=== PATIENT | female | born 1995 | race Caucasian/White ===

== ENCOUNTER 2017-02-08 11:53 | Inpatient (IN) | payer OTHER ==
[~2017-02-08 11:53] MED LIST: BACTRIM DS TAB1 EACH PO; CELEXA20 MG PO; CIPRO500 MG PO; COLACE100 MG PO; LEVAQUIN500 MG PO; MIRENA1 EACH IY; NAPROXEN500 MG PO; NEXPLANON68 MG SQ; NORCO 5-325 TA1 EACH PO; PROMETHAZINE HC25 M1 PO; TRAMADOL HCL50 MG PO; VICODIN 5-3001 EACH PO; ZOFRAN ODT4 MG PO; ZOFRAN ODT4 MG SL; ZOFRAN ODT8 MG PO; [UNRECOGNIZED DRUG - OTHER]
--- NOTE | 2017-02-08 14:08 | PR ---
[facility] [address] [facility] [place], [place] [address] Signed Progress Notes IP Datetime Report Generated by CPCatina: 02/08/2017 14:08 PROGRESS NOTES: [id number] Impression: Normal progression of labor Procedures: Artificial ROM; Intrauterine Pressure Catheter; Sterile Vag Exam Plan: Continue present management; Anesthesia consult Informed Consent Obtain: Vaginal Delivery; Risks, Benefits and Alternatives Discussed VITAL SIGNS: [id number] Vital Signs: Reviewed; Within Normal Limits EXAM: [id number] Dilatation: 5.0 Effacement: 80 Station: -2 Uterine Contractions: eery two to three minutes MEMBRANES: [id number] Membrane Status: Intact ROM Note: amniotomy performed - copious amount of fluid, light meconium Comments: patient wanting epidural Fetus A: [id number] FHR Baseline: 150's Variability: Moderate 6-25bpm Accelerations: 15X15 Decelerations: None FHR Category: Category I Presentation: Vertex Comments on Fetus A: reactive Fetus B: [id number] Signing Physician: Tg Leon MD CC: *Electronically Signed* 02/08/17 1408 TG LEON MD PATIENT NAME: JANET TAFOYA PROGRESS NOTE DATE OF : 93 PHYSICIAN: TG LEON MD RPT #: [id number] REPORT IS CONFIDENTIAL AND NOT TO BE RELEASED WITHOUT AUTHORIZATION
--- NOTE | 2017-02-08 19:43 | PR ---
[facility] [address] [facility] [place], [place] [address] Signed Progress Notes IP Datetime Report Generated by CPCatina: 02/08/2017 19:43 PROGRESS NOTES: [id number] Impression: Normal progression of labor Procedures: Artificial ROM; Intrauterine Pressure Catheter; Sterile Vag Exam Plan: Anticipate Vaginal Delivery Informed Consent Obtain: Vaginal Delivery; Risks, Benefits and Alternatives Discussed VITAL SIGNS: [id number] Vital Signs: Reviewed; Within Normal Limits EXAM: [id number] Dilatation: 10.0 Effacement: 100 Station: 1 Uterine Contractions: every one to two minutes MEMBRANES: [id number] Membrane Status: Ruptured Amniotic Fluid Color: Clear ROM Note: amniotomy performed - copious amount of fluid, light meconium Comments: patient ready to push, feeling urge Fetus A: [id number] FHR Baseline: 140's Variability: Moderate 6-25bpm Accelerations: 15X15 Decelerations: None FHR Category: Category I Presentation: Vertex Comments on Fetus A: reactive Fetus B: [id number] Signing Physician: Tg Leon MD CC: *Electronically Signed* 02/08/171942 TG LEON MD PATIENT NAME: JANET TAFOYA PROGRESS NOTE DATE OF : 93 PHYSICIAN: TG LEON MD RPT #: [id number] REPORT IS CONFIDENTIAL AND NOT TO BE RELEASED WITHOUT AUTHORIZATION
--- NOTE | 2017-02-12 21:46 | EKG ---
[facility] [address] [facility] [place] [address] Signed Sinus rhythm with frequent premature ventricular complexes in a pattern of bigeminy Otherwise normal ECG When compared with ECG of 14-AUG-2016 16:05, No significant change was found Confirmed by SNEHA TOLLIVER MD ([id number]) on 02/12/2017 9:45:55 PM Electronically Signed By: SNEHA TOLLIVER MD 02/12/17 2146 PATIENT NAME: JANET TAFOYA Electrocardiogram DATE OF : 93 PHYSICIAN: SNEHA TOLLIVER MD REPORT #: [id number] REPORT IS CONFIDENTIAL AND NOT TO BE RELEASED WITHOUT AUTHORIZATION
== END 2017-02-10 12:30 | disposition home or self-care (01) | DRG 775 ==
LOC: FBCO 11:53 → FBC 13:05
PROVIDERS: ADMIT Obstetrics & Gynecology
PROC: 10907ZC Drainage of Amniotic Fluid, Therapeutic from Products of Conception, Via Natural or Artificial Opening (ICD-10-PCS; principal; 2017-02-08)
PROC: 10E0XZZ Delivery of Products of Conception, External Approach (ICD-10-PCS; 2017-02-08)
PROC: 00HU33Z Insertion of Infusion Device into Spinal Canal, Percutaneous Approach (ICD-10-PCS; 2017-02-08)
PROC: 3E0R3CZ (ICD-10-PCS; 2017-02-08)
DX: O77.0 Labor and delivery complicated by meconium in amniotic fluid (principal); Z37.0 Single live birth; Z3A.38 38 weeks gestation of pregnancy; O69.81X0 Labor and delivery complicated by cord around neck, without compression, not applicable or unspecified
CPT/HCPCS: 01960; 36415; 59025; 80048; 83735; 84443; 85027; 93005; 93010; 99213; J2590; J3010; J7120

== ENCOUNTER 2017-06-21 11:51 | Emergency (ER) | payer OTHER ==
[~2017-06-21] VITALS: Ht 160 cm; Wt 74.8 kg
[2017-06-21] MEDS ORDERED: PERCOCET 5-3251 EACH PO (12:01)
[2017-06-21] MEDS ORDERED: METOPROLOL SUC100 MG PO (12:02)
--- NOTE | 2017-06-22 15:13 | EKG ---
[facility] [address] [place] [address] Signed Sinus rhythm with frequent premature ventricular complexes and premature atrial complexes Otherwise normal ECG When compared with ECG of 14-JUN-2017 11:28, premature atrial complexes are now present Confirmed by SNEHA TOLLIVER MD ([id number]) on 06/22/2017 3:13:33 PM Electronically Signed By: SNEHA TOLLIVER MD 06/22/17 1513 PATIENT NAME: JANET TAFOYA Electrocardiogram DATE OF : 93 PHYSICIAN: SNEHA TOLLIVER MD REPORT #: [id number] REPORT IS CONFIDENTIAL AND NOT TO BE RELEASED WITHOUT AUTHORIZATION
== END 2017-06-21 13:45 | disposition home or self-care (01) ==
LOC: ED 11:51
DX: I49.3 Ventricular premature depolarization (principal); R07.89 Other chest pain; F17.200 Nicotine dependence, unspecified, uncomplicated; Z98.51 Tubal ligation status; Z90.89 Acquired absence of other organs; Z98.890 Other specified postprocedural states; Z88.6 Allergy status to analgesic agent
CPT/HCPCS: 71045; 80053; 84484; 85025; 85379; 93005; 93010; 99284

== ENCOUNTER 2019-05-21 10:25 | Emergency (ER) | payer OTHER ==
[~2019-05-21] VITALS: Ht 160 cm; Wt 74.8 kg
--- OUTSIDE RECORDS SUMMARY | ~2019-05-21 | XMS | Clinical Summary ---
Demographics + + + | Address | [address] | | | [place] [address] | + + + | Home Phone | | + + + | Preferred Language | Unknown | + + + | Marital Status | Single | + + + | Cheondoism Affiliation | Unknown | + + + | Race | Unknown | + + + | Ethnic Group | Unknown | + + + Author + + + | Author | [facility] | | | and [place] | + + + | Organization | [facility] | | | and [place] | + + + | Address | Unknown | + + + | Phone | Unavailable | + + + Support + + + + + | Name | Relationship | Address | Phone | + + + + + | Jenny Michele | ECON | [place] | | | | | [address] | | + + + + + Care Team Providers + +------+ + | Care Automotive Heavy Mechanic Name | Role | Phone | + +------+ + | Lisseth Butt | PCP | | + +------+ + Allergies + + + + + + | Active Allergy | Reactions | Severity | Noted | Comments | | | | | Date | | + + + + + + | Aspirin | Hives | High | 11/07/19 | | | | | | 17 | | + + + + + + | Metoprolol | Other (See Comments) | Medium | 07/24/19 | Chest tightness | | | | | 18 | | + + + + + + Medications + + + +---------+------+------+-------+ | Medication | Sig | Dispensed | Refills | Star | End | Statu | | | | | | t | Date | s | | | | | | Date | | | + + + +---------+------+------+-------+ | | Take 1 tablet by | | 0 | /0 | | Activ | | [id number] | mouth daily. | | | 11/20 | | e | | PO | | | | 17 | | | + + + +---------+------+------+-------+ Active Problems + + + | Problem | Noted Date | + + + | PVC (premature ventricular contraction) | 11/21/2016 | + + + Family History + + +------+ + | Medical History | Relation | Name | Comments | + + +------+ + | Heart disease | Mother | | | + + +------+ + | Sleep apnea | Mother | | | + + +------+ + + +------+--------+ + | Relation | Name | Status | Comments | + +------+--------+ + | Father | | Alive | | + +------+--------+ + | Mother | | Alive | | + +------+--------+ + | Mother | | | | + +------+--------+ + Social History + +-------+ +--------+------+ | Tobacco Use | Types | Packs/Day | Years | Date | | | | | Used | | + +-------+ +--------+------+ | Former Smoker | | | | | + +-------+ +--------+------+ + + + | Sex Assigned at | Date Recorded | | | | + + + | Not on file | | + + + + + + + | Job Start Date | Occupation | Industry | + + + + | Not on file | Not on file | Not on file | + + + + + + + + | Travel History | Travel Start | Travel End | + + + + + + | No recent travel history available. | + + Last Filed Vital Signs + + + + + | Vital Sign | Reading | Time Taken | Comments | + + + + + | Blood Pressure | 116/60 | 07/02/2018 4:02 PM | | | | | PST | | + + + + + | Pulse | 79 | 07/02/2018 4:02 PM | | | | | PST | | + + + + + | Temperature | - | - | | + + + + + | Respiratory Rate | - | - | | + + + + + | Oxygen Saturation | - | - | | + + + + + | Inhaled Oxygen | - | - | | | Concentration | | | | + + + + + | Weight | 81.6 kg (180 lb) | 07/28/2018 12:34 PM | | | | | PST | | + + + + + | Height | 160 cm (5' 3") | 07/02/2018 4:02 PM | | | | | PST | | + + + + + | Body Mass Index | 31.89 | 07/02/2018 4:02 PM | | | | | PST | | + + + + + Plan of Treatment + + + + + | Health Maintenance | Due Date | Last Done | Comments | + + + + + | Vaccine: HPV (1 - | | | | | Female 3-dose | 8 | | | | series) | | | | + + + + + | Vaccine: | | | | | Dtap/Tdap/Td (1 - | 2 | | | | Tdap) | | | | + + + + + | Cervical Cancer | | | | | Screening (Pap) | 4 | | | + + + + + | Vaccine: Influenza | | | | | (#1) | 9 | | | + + + + + Results Not on filefrom Last 3 Months Insurance + +--------+ +--------+ +---------+--------+ | Payer | Benefi | Subscriber | Effect | Phone | Address | Type | | | t Plan | ID | warren | | | | | | / | | Dates | | | | | | Group | | | | | | + +--------+ +--------+ +---------+--------+ | [employer] | [employer] | [id number] | 06/03/19 | [phone] | | Medica | | MEDICAID HMO | HEALTH | | 13-Pre | 1 | | id | | | MD[place] | | [place] | | | | | [place] | | | | | | + +--------+ +--------+ +---------+--------+ | [employer] | [employer] | [id number] | 03/25/ | [phone] | | Medica | | MEDICAID HMO | HEALTH | | 2019-P | 1 | | id | | | MDCD | | resent | | | | | | [place] | | | | | | + +--------+ +--------+ +---------+--------+ + +--------+ +--------+ + + | Guarantor Name | Accoun | Relation to | Date | Phone | Billing Address | | | t Type | Patient | of | | | | | | | | | | + +--------+ +--------+ + + | Antonella Glynn | Person | Self | [birth year] | [address] | | | al/Fam | | 1994 | [phone] | [place], [place] | | | [place] | | | 6 (Home) | [address] | + +--------+ +--------+ + + | Antonella Glynn | Person | Self | [birth year] | [address] | | | al/Fam | | 1994 | [phone] | [place], [place] | | | [place] | | | 6 (Home) | [address] | | | | | | [phone] | | | | | | | 0 (Work) | | + +--------+ +--------+ + + Advance Directives + + + + + | Type | Date Recorded | Patient | Explanation | | | | Student Services Vice President | | + + + + + | Power of | | | | | Operations Plant Attendant | | | | + + + + + | Advance | | | | | Directive | | | | + + + + +
--- OUTSIDE RECORDS SUMMARY | ~2019-05-21 | XMS | Encounter Summary ---
Demographics + + + | Address | [address] | | | [place] [address] | + + + | Home Phone | | + + + | Preferred Language | Unknown | + + + | Marital Status | Single | + + + | Advent Affiliation | Unknown | + + + | Race | Unknown | + + + | Ethnic Group | Unknown | + + + Author + + + | Author | [facility] | | | and [place] | + + + | Organization | [facility] | | | and [place] | + + + | Address | Unknown | + + + | Phone | Unavailable | + + + Support + + + + + | Name | Relationship | Address | Phone | + + + + + | Jenny Michele | ECON | [place] | | | | | [address] | | + + + + + Care Team Providers + +------+ + | Care Master Merchandiser Name | Role | Phone | + +------+ + | Lisseth Butt | PCP | | + +------+ + Encounter Details +--------+ + + + + | Date | Type | Department | Care Team | Description | +--------+ + + + + | 11/06/ | Orders Only | [facility] | Conversion | | | 2017 | | CONVERSION [address] | Transaction, | | | [address] | Provider Unknown | | | | | [place], [place] | [phone] | | | | | [phone] | (Fax) | | | | | [phone] | | | +--------+ + + + + Social History + +-------+ +--------+------+ | Tobacco Use | Types | Packs/Day | Years | Date | | | | | Used | | + +-------+ +--------+------+ | Never Assessed | | | | | + +-------+ [...] recent travel history available. | + + documented as of this encounter Plan of Treatment Not on filedocumented as of this encounter Visit Diagnoses Not on filedocumented in this encounter"
--- OUTSIDE RECORDS SUMMARY | ~2019-05-21 | XMS | Encounter Summary ---
Demographics + + + | Address | [address] | | | [place] [address] | + + + | Home Phone | | + + + | Preferred Language | Unknown | + + + | Marital Status | Single | + + + | Hindu Affiliation | Unknown | + + + | Race | Unknown | + + + | Ethnic Group | Unknown | + + + Author + + + | Author | [facility] | | | and [place] | + + + | Organization | [facility] | | | and [place] | + + + | Address | Unknown | + + + | Phone | Unavailable | + + + Support + + + + + | Name | Relationship | Address | Phone | + + + + + | Jenny Michele | ECON | [place] | | | | | [address] | | + + + + + Care Team Providers + +------+ + | Care Marine Engine Machinist Name | Role | Phone | + +------+ + | Reese Ventura DO | PCP | | + +------+ + Encounter Details +--------+ + + + + | Date | Type | Department | Care Team | Description | +--------+ + + + + | 07/28/ | Hospital | [facility] | Conversion | Ventricular | | 2019 | Encounter | [facility] | Transaction, | premature beats | | | | [address] | Provider Unknown | | | | | [place] | [phone] | | | | | [address] | | | | | | [phone] | Ray Pressley | | | | | | MD [address] | | | | | | [place], [place] | | | | | | [place] | | | | | | [address] | | | | | | | | +--------+ + + + [...] + + documented as of this encounter Last Filed Vital Signs + + + + + | Vital Sign | Reading | Time Taken | Comments | + + + + + | Blood Pressure | - | - | | + + + + + | Pulse | - | - | | + [...] + + + + | Height | - | - | | + + + + + | Body Mass Index | 31.89 | 07/02/2018 4:02 PM | | | | | PST | | + + + + + documented in this encounter Medications at Time of Discharge + + + +---------+ + + | Medication | Sig | Dispensed | Refills | Start | End Date | | | | | | Date | | + + + +---------+ + + | | Take 1 tablet by | | 0 | 11/07/19 | | | [id number] | mouth daily. | | | 17 | | | PO | | | | | | + + + +---------+ + + documented as of this encounter Plan of Treatment Not on filedocumented as of this encounter Procedures + +--------+ + + + | Procedure Name | Priori | Date/Time | Associated Diagnosis | Comments | | | ty | | | | + +--------+ + + + | MRI CARDIAC W WO | Routin | 07/28/2018 | | Results for this | | CONTRAST | e | 1:38 PM | | procedure are in the | | | | PST | | results section. | + +--------+ + + + documented in this encounter Results MRI Cardiac w wo Contrast (07/28/2018 1:38 PM PST) + + | Specimen | + + | | + + + + + | Impressions | Performed At | + + + | *Suboptimal examination secondary to cardiac arrhythmia. *No focal | | | dyskinesis of the right ventricle to suggest ARVD by MRI. *No | | | definite MR evidence of infiltrative cardiomyopathy, however | | | evaluation limited secondary to limitations of the present | | | examination. Signed by: Shantelle Ibarra Date/Time: 07/28/2018 | | | 2:48 PM | | + + + + + + | Narrative | Performed At | + + + | MRI CARDIAC WITH AND WITHOUT CONTRAST CLINICAL INFORMATION: r/o | | | ARVD/infiltrative disease Ventricular premature beats COMPARISON: | | | None. PROCEDURE: Unenhanced multiplanar FIESTA and DIR. Phase | | | contrast flow measurements of aortic root, main pulmonary artery and | | | other valves and vessels as clinically indicated. Short axis and | | | limited long axis delayed enhancement images after the administration | | | of 8ML Gadavist. Limitations: Suboptimal examination secondary to | | | cardiac arrhythmia and limitations of cardiac gating. Irregular | | | cardiac rhythm. FINDINGS: Normal cardiac size. Trace pericardial | | | effusion. Irregular cardiac rhythm. No intracardiac filling | | | defects. No focal dyskinesis of the right ventricle or the left | | | ventricle. No myocardial hypertrophy. Normal myocardial perfusion | | | at rest. No abnormal delayed myocardial enhancement, however, | | | assessment limited by artifacts. | | + + + + + | Procedure Note | + + | HemalLes tamez Conversion - 01/13/2019 9:23 PM PDT MRI CARDIAC WITH AND WITHOUT CONTRAST | | CLINICAL INFORMATION: | | r/o ARVD/infiltrative disease Ventricular premature beats | | COMPARISON: | | None. | | PROCEDURE: | | Unenhanced multiplanar FIESTA and DIR. Phase contrast flow measurements | | of aortic root, main pulmonary artery and other valves and vessels as | | clinically indicated. Short axis and limited long axis delayed | | enhancement images after the administration of 8ML Gadavist. | | Limitations: Suboptimal examination secondary to cardiac arrhythmia and | | limitations of cardiac gating. Irregular cardiac rhythm. | | FINDINGS: | | Normal cardiac size. Trace pericardial effusion. Irregular cardiac | | rhythm. | | No intracardiac filling defects. | | No focal dyskinesis of the right ventricle or the left ventricle. No | | myocardial hypertrophy. | | Normal myocardial perfusion at rest. | | No abnormal delayed myocardial enhancement, however, assessment limited | | by artifacts. | | IMPRESSION: | | *Suboptimal examination secondary to cardiac arrhythmia. | | *No focal dyskinesis of the right ventricle to suggest ARVD by MRI. | | *No definite MR evidence of infiltrative cardiomyopathy, however | | evaluation limited secondary to limitations of the present examination. | | Signed by: Shantelle Ibarra | | Sign Date/Time: 07/28/2018 2:48 PM | + + documented in this encounter Visit Diagnoses + + | Diagnosis | + + | Ventricular premature beats Other premature beats | + + documented in this encounter"
--- OUTSIDE RECORDS SUMMARY | ~2019-05-21 | XMS | Encounter Summary ---
Demographics + + + | Address | [address] | | | [place] [address] | + + + | Home Phone | | + + + | Preferred Language | Unknown | + + + | Marital Status | Single | + + + | Restorationism Affiliation | Unknown | + + + | Race | Unknown | + + + | Ethnic Group | Unknown | + + + Author + + + | Author | [facility] | | | and [place] | + + + | Organization | [facility] | | | and [place] | + + + | Address | Unknown | + + + | Phone | Unavailable | + + + Support + + + + + | Name | Relationship | Address | Phone | + + + + + | Jenny Michele | ECON | [place] | | | | | [address] | | + + + + + Care Team Providers + +------+ + | Care Corrections Nurse Name | Role | Phone | + +------+ + | Reese Ventura DO | PCP | | + +------+ + Encounter Details +--------+ + + + + | Date | Type | Department | Care Team | Description | +--------+ + + + + | 07/28/ | Hospital | [facility] | Conversion | Ventricular | | 2019 | Encounter | [facility] | Transaction, | premature beats | | | | [address] | Provider Unknown | | | | | [place] | [phone] | | | | | [address] | | | | | | [phone] | Ray Pressley | | | | | | MD [address] | | | | | | [address], [place] | | | | | | [place] | | | | | | [address] | | | | | | | [...] | 0 | 11/07/19 | | | [id number] | mouth daily. | | | 17 [...]
--- OUTSIDE RECORDS SUMMARY | ~2019-05-21 | XMS | Encounter Summary ---
Demographics + + + | Address | [address] | | | [place] [address] | + + + | Home Phone | | + + + | Preferred Language | Unknown | + + + | Marital Status | Single | + + + | Protestant Affiliation | Unknown | + + + | Race | Unknown | + + + | Ethnic Group | Unknown | + + + Author + + + | Author | [facility] | | | and [place] | + + + | Organization | [facility] | | | and [place] | + + + | Address | Unknown | + + + | Phone | Unavailable | + + + Support + + + + + | Name | Relationship | Address | Phone | + + + + + | Jenny Michele | ECON | [place] | | | | | [address] | | + + + + + Care Team Providers + +------+ + | Care Grain I Farmworker Name | Role | Phone | + +------+ + | Lisseth Butt | PCP | | + +------+ + Encounter Details +--------+ + + + + | Date | Type | Department | Care Team | Description | +--------+ + + + + | 11/14/ | Orders Only | [facility] | Marino Aguirre, | | | 2017 | | CONVERSION 888 | MD [address] | | | | | [address] | [place], [place] | | | | | [place], [place] | [address] | | | | | [address] | | | | | | [phone] | | | +--------+ + + + [...] | + +--------+ + + + | ECHO INTERPRETATION | Routin | 11/14/2016 | | Results for this | | OF OUTSIDE FILMS | e | 3:09 PM | | procedure are in the | | | | PDT | | results section. | + +--------+ + + + documented in this encounter Results ECHO Interpretation of Outside Films (11/14/2016 3:09 PM PDT) + + | Specimen | + + | | + + + + + | Impressions | Performed At | + + + | 1. The left ventricle is normal in size, wall thickness and normal | | | systolic function EF 60-65%. 2. The right ventricle is mildly | | | enlarged with normal systolic function. 3. Mild tricuspid | | | regurgitation with no pulmonary hypertension. 4. There is no | | | pericardial effusion. | | + + + + + + | Narrative | Performed At | + + + | Patient Name: Antonella Glynn Date of : 1995 | | | Performing Physician: Marino Aguirre | | | | | | ------REPORT ADDENDED------ INDICATIONS pvcs | | | CONCLUSIONS 1. The left ventricle is normal in size, | | | wall thickness and normal systolic function EF 60-65%. 2. The right | | | ventricle is mildly enlarged with normal systolic function. 3. Mild | | | tricuspid regurgitation with no pulmonary hypertension. 4. There is | | | no pericardial effusion. FINDINGS -------- ECG rhythm: Sinus | | | rhythm. ECG rhythm: Frequent ventricular premature beats. Study: A | | | 2-dimensional transthoracic echocardiogram with m-mode, spectral and | | | color flow Doppler was perfomed. Study: This was a technically | | | adequate study. Left Ventricle: Overall left ventricular systolic | | | function is normal with, an EF between 60 - 65 %. Left Ventricle: The | | | left ventricle cavity size is normal. Left Ventricle: Left | | | ventricular wall thickness is normal. Left Ventricle: The diastolic | | | filling pattern is normal for the age of the patient. Right | | | Ventricle: The right ventricle is mildly enlarged. Right Ventricle: | | | The right ventricular systolic function is normal. Left Atrium: The | | | left atrium is normal in size. Right Atrium: The right atrium is | | | normal in size. Aortic Valve: The aortic valve is trileaflet, and | | | appears anatomically normal. No aortic stenosis or regurgitation. | | | Mitral Valve: The mitral valve is normal. Mitral Valve: There is | | | trace mitral regurgitation. Tricuspid Valve: The tricuspid valve | | | appears structurally normal. Tricuspid Valve: Mild tricuspid | | | regurgitation present. Tricuspid Valve: There is no evidence of | | | pulmonary hypertension. Tricuspid Valve: The right ventricular | | | systolic pressure (pulmonary artery systolic pressure), as measured by | | | Doppler, is 25.83mmHg. Pulmonic Valve: The pulmonic valve is normal. | | | Pulmonic Valve: Trace pulmonic regurgitation. Pericardium: There | | | is no pericardial effusion. Pericardium: No pleural effusion seen. | | | IVC/Hepatic Veins: The inferior vena cava is normal in size and | | | collapses > 50 % with sniff, indicating normal central venous | | | pressures. Aorta: The aortic root, ascending aorta are within normal | | | dimensions. MEASUREMENTS Ao asc: 2.95 cm Ao | | | sinus: 3.[address] junct: 2.78 cm LA Major: 3.43 cm | | | EDV(Teich): 104.09 ml IVSd: 1.01 cm LVIDd: 4.73 cm LVPWd: | | | 1.00 cm %FS: 26.89 % EF(Teich): 52.44 % ESV(Teich): | | | 49.50 ml LVIDs: 3.46 cm SV(Teich): 54.59 ml RVIDd: 3.10 cm | | | LVEF MOD A2C: 68.62 % SV MOD A2C: 91.36 ml LVEF MOD A4C: | | | 52.03 % SV MOD A4C: 59.07 ml EF Biplane: 61.08 % LVEDV MOD | | | BP: 123.49 ml LVESV MOD BP: 48.05 ml LVEDV MOD A2C: 133.14 | | | ml LVLd A2C: 8.36 cm LVEDV MOD A4C: 113.51 ml LVLd A4C: | | | 8.47 cm LVESV MOD A2C: 41.77 ml LVLs A2C: 6.94 cm LVESV MOD | | | A4C: 54.44 ml LVLs A4C: 7.10 cm LAESV(A-L): 65.71 ml LAESV | | | Index (A-L): 34.05 ml/m2 LAAs A2C: 17.60 cm2 LAESV A-L A2C: | | | 60.06 ml LALs A2C: 4.38 cm LAAs A4C: 19.26 cm2 LAESV A-L | | | A4C: 62.89 ml LALs A4C: 5.00 cm RAAs: 13.98 cm2 RAESV A-L: | | | 40.38 ml RAESV MOD: 37.54 ml RALs: 4.11 cm TAPSE: 2.24 | | | cm AV maxP.49 mmHg AV meanP.73 mmHg AV Vmax: 1.27 | | | m/s AV Vmean: 0.72 m/s AV VTI: 21.93 cm LVOT maxP.88 | | | mmHg LVOT meanP.22 mmHg LVOT Vmax: 0.98 m/s LVOT Vmean: | | | 0.70 m/s LVOT VTI: 20.45 cm MV A Cordell: 0.62 m/s MV DecT: | | | 125.14 ms MV E Cordell: 0.71 m/s MV E/A Ratio: 1.15 MV PHT: | | | 36.29 ms MVA By PHT: 6.06 cm2 Septal e': 0.06 m/s Septal | | | E/e': 10.56 Lateral e': 0.12 m/s Lateral E/e': 5.95 RAP: | | | 5 mmHg RVSP: 25.83 mmHg TR maxP.83 mmHg TR Vmax: | | | 2.28 m/s Frame Stripper: JERE Authenticated by: Marino Aguirre | | | Report Date/Time: 11-15-2016 20:19:40 | | + + + + -----+ | Procedure Note | + -----+ | Les Recio Conversion - 01/22/2019 8:16 PM PDT Patient Name: Pascual Glynn of | | : 1995 Performing Physician: Marino | | Carla ------REPORT | | ADDENDED------INDICATIONS pvcs CONCLUSIONS 1. The left ventricle is | | normal in size, wall thickness and normal systolic function EF 60-65%.2. The right | | ventricle is mildly enlarged with normal systolic function.3. Mild tricuspid | | regurgitation with no pulmonary hypertension.4. There is no pericardial effusion. | | FINDINGS--------ECG rhythm: Sinus rhythm.ECG rhythm: Frequent ventricular premature | | beats.Study: A 2-dimensional transthoracic echocardiogram with m-mode, spectral and | | color flow Doppler was perfomed.Study: This was a technically adequate study.Left | | Ventricle: Overall left ventricular systolic function is normal with, an EF between 60 - | | 65 %.Left Ventricle: The left ventricle cavity size is normal.Left Ventricle: Left | | ventricular wall thickness is normal.Left Ventricle: The diastolic filling pattern is | | normal for the age of the patient.Right Ventricle: The right ventricle is mildly | | enlarged.Right Ventricle: The right ventricular systolic function is normal.Left Atrium: | | The left atrium is normal in size.Right Atrium: The right atrium is normal in | | size.Aortic Valve: The aortic valve is trileaflet, and appears anatomically normal. No | | aortic stenosis or regurgitation.Mitral Valve: The mitral valve is normal.Mitral Valve: | | There is trace mitral regurgitation.Tricuspid Valve: The tricuspid valve appears | | structurally normal.Tricuspid Valve: Mild tricuspid regurgitation present.Tricuspid | | Valve: There is no evidence of pulmonary hypertension.Tricuspid Valve: The right | | ventricular systolic pressure (pulmonary artery systolic pressure), as measured by | | Doppler, is 25.83mmHg.Pulmonic Valve: The pulmonic valve is normal.Pulmonic Valve: Trace | | pulmonic regurgitation.Pericardium: There is no pericardial effusion.Pericardium: No | | pleural effusion seen.IVC/Hepatic Veins: The inferior vena cava is normal in size and | | collapses > 50 % with sniff, indicating normal central venous pressures.Aorta: The | | aortic root, ascending aorta are within normal dimensions. MEASUREMENTS Ao | | asc: 2.95 cmAo sinus: 3.[address] junct: 2.78 cmLA Major: 3.43 cmEDV(Teich): | | 104.09 mlIVSd: 1.01 cmLVIDd: 4.73 cmLVPWd: 1.00 cm%FS: 26.89 %EF(Teich): 52.44 | | %ESV(Teich): 49.50 mlLVIDs: 3.46 cmSV(Teich): 54.59 mlRVIDd: 3.10 cmLVEF MOD | | A2C: 68.62 %SV MOD A2C: 91.36 mlLVEF MOD A4C: 52.03 %SV MOD A4C: 59.07 mlEF | | Biplane: 61.08 %LVEDV MOD BP: 123.49 mlLVESV MOD BP: 48.05 mlLVEDV MOD A2C: | | 133.14 mlLVLd A2C: 8.36 cmLVEDV MOD A4C: 113.51 mlLVLd A4C: 8.47 cmLVESV MOD A2C: | | 41.77 mlLVLs A2C: 6.94 cmLVESV MOD A4C: 54.44 mlLVLs A4C: 7.10 cmLAESV(A-L): | | 65.71 mlLAESV Index (A-L): 34.05 ml/m2LAAs A2C: 17.60 [id number] A-L A2C: 60.06 | | mlLALs A2C: 4.38 cmLAAs A4C: 19.26 [id number] A-L A4C: 62.89 mlLALs A4C: 5.00 | | cmRAAs: 13.98 [id number] A-L: 40.38 mlRAESV MOD: 37.54 mlRALs: 4.11 cmTAPSE: | | 2.24 cmAV maxP.49 mmHgAV meanP.73 mmHgAV Vmax: 1.27 m/Becky Vmean: 0.72 | | m/Becky VTI: 21.93 cmLVOT maxP.88 mmHgLVOT meanP.22 mmHgLVOT Vmax: 0.98 | | m/sLVOT Vmean: 0.70 m/sLVOT VTI: 20.45 cmMV A Cordell: 0.62 m/sMV DecT: 125.14 msMV | | E Cordell: 0.71 m/sMV E/A Ratio: 1.15MV PHT: 36.29 msMVA By PHT: 6.06 [id number] e': | | 0.06 m/sSeptal E/e': 10.56Lateral e': 0.12 m/sLateral E/e': 5.95RAP: 5 | | mmHgRVSP: 25.83 mmHgTR maxP.83 mmHgTR Vmax: 2.28 m/s Frame Stripper: | | DBSAuthenticated by: Marino Fulton Date/Time: 11-15-2016 20:19:40 IMPRESSION: | | 1. The left ventricle is normal in size, wall thickness and normal systolic function EF | | 60-65%.2. The right ventricle is mildly enlarged with normal systolic function.3. Mild | | tricuspid regurgitation with no pulmonary hypertension.4. There is no pericardial | | effusion. | | | |MEASUREMENTS | | | |Ao asc: 2.95 cm | |Ao sinus: 3.31 cm | |Ao st junct: 2.78 cm | |LA Major: 3.43 cm | |EDV(Teich): 104.09 ml | |IVSd: 1.01 cm | |LVIDd: 4.73 cm | |LVPWd: 1.00 cm | |%FS: 26.89 % | |EF(Teich): 52.44 % | |ESV(Teich): 49.50 ml | |LVIDs: 3.46 cm | |SV(Teich): 54.59 ml | |RVIDd: 3.10 cm | |LVEF MOD A2C: 68.62 % | |SV MOD A2C: 91.36 ml | |LVEF MOD A4C: 52.03 % | |SV MOD A4C: 59.07 ml | |EF Biplane: 61.08 % | |LVEDV MOD BP: 123.49 ml | |LVESV MOD BP: 48.05 ml | |LVEDV MOD A2C: 133.14 ml | |LVLd A2C: 8.36 cm | |LVEDV MOD A4C: 113.51 ml | |LVLd A4C: 8.47 cm | |LVESV MOD A2C: 41.77 ml | |LVLs A2C: 6.94 cm | |LVESV MOD A4C: 54.44 ml | |LVLs A4C: 7.10 cm | |LAESV(A-L): 65.71 ml | |LAESV Index (A-L): 34.05 ml/m2 | |LAAs A2C: 17.60 cm2 | |LAESV A-L A2C: 60.06 ml | |LALs A2C: 4.38 cm | |LAAs A4C: 19.26 cm2 | |LAESV A-L A4C: 62.89 ml | |LALs A4C: 5.00 cm | |RAAs: 13.98 cm2 | |RAESV A-L: 40.38 ml | |RAESV MOD: 37.54 ml | |RALs: 4.11 cm | |TAPSE: 2.24 cm | |AV maxP.49 mmHg | |AV meanP.73 mmHg | |AV Vmax: 1.27 m/s | |AV Vmean: 0.72 m/s | |AV VTI: 21.93 cm | |LVOT maxP.88 mmHg | |LVOT meanP.22 mmHg | |LVOT Vmax: 0.98 m/s | |LVOT Vmean: 0.70 m/s | |LVOT VTI: 20.45 cm | |MV A Cordell: 0.62 m/s | |MV DecT: 125.14 ms | |MV E Cordell: 0.71 m/s | |MV E/A Ratio: 1.15 | |MV PHT: 36.29 ms | |MVA By PHT: 6.06 cm2 | |Septal e': 0.06 m/s | |Septal E/e': 10.56 | |Lateral e': 0.12 m/s | |Lateral E/e': 5.95 | |RAP: 5 mmHg | |RVSP: 25.83 mmHg | |TR maxP.83 mmHg | |TR Vmax: 2.28 m/s | | | |Frame Stripper: JERE | |Authenticated by: Marino Aguirre | |Report Date/Time: 11-15-2016 20:19:40 | | | |IMPRESSION: | |1. The left ventricle is normal in size, wall thickness and normal systolic function EF 60- 65%. | |2. The right ventricle is mildly enlarged with normal systolic function. | |3. Mild tricuspid regurgitation with no pulmonary hypertension. | |4. There is no pericardial effusion. | + -----+ documented in this encounter Visit Diagnoses Not on filedocumented in this encounter"
--- OUTSIDE RECORDS SUMMARY | ~2019-05-21 | XMS | Encounter Summary ---
Demographics + + + | Address | [address] | | | [place] [address] | + + + | Home Phone | | + + + | Preferred Language | Unknown | + + + | Marital Status | Single | + + + | Amish Affiliation | Unknown | + + + | Race | Unknown | + + + | Ethnic Group | Unknown | + + + Author + + + | Author | [facility] | | | and [place] | + + + | Organization | [facility] | | | and [place] | + + + | Address | Unknown | + + + | Phone | Unavailable | + + + Support + + + + + | Name | Relationship | Address | Phone | + + + + + | Jenny Michele | ECON | [place] | | | | | [address] | | + + + + + Care Team Providers + +------+ + | Care Bag Filler Name | Role | Phone | + [...] Provider Unknown | | | | | [place], [place] | [phone] | | | | | [phone] | (Fax) | | | | | [phone] | | | +--------+ + + + [...]
--- OUTSIDE RECORDS SUMMARY | ~2019-05-21 | XMS | Encounter Summary ---
Demographics + + + | Address | [address] | | | [place] [address] | + + + | Home Phone | | + + + | Preferred Language | Unknown | + + + | Marital Status | Single | + + + | Adventism Affiliation | Unknown | + + + | Race | Unknown | + + + | Ethnic Group | Unknown | + + + Author + + + | Author | [facility] | | | and [place] | + + + | Organization | [facility] | | | and [place] | + + + | Address | Unknown | + + + | Phone | Unavailable | + + + Support + + + + + | Name | Relationship | Address | Phone | + + + + + | Jenny Michele | ECON | [place] | | | | | [address] | | + + + + + Care Team Providers + +------+ + | Care Disability Services Coordinator Name | Role | Phone | + [...] | | [address] | [place], [place] | | | | | [place], [place] | [address] | | | | | [address] | | | | | | [phone] | | | +--------+ + + + [...] TR Vmax: | | | 2.28 m/s Pipe Fitter Maintenance: JERE Authenticated by: Marino Aguirre | | [...] mlLAESV Index (A-L): 34.05 ml/m2LAAs A2C: 17.60 [id number] A-L A2C: 60.06 | | mlLALs A2C: 4.38 cmLAAs A4C: 19.26 [id number] A-L A4C: 62.89 mlLALs A4C: 5.00 | | cmRAAs: 13.98 [id number] A-L: 40.38 mlRAESV MOD: 37.54 mlRALs: 4.11 [...] 1.15MV PHT: 36.29 msMVA By PHT: 6.06 qi3Loskti e': | | 0.06 m/sSeptal E/e': 10.56Lateral e': 0.12 m/sLateral E/e': 5.95RAP: 5 | | mmHgRVSP: 25.83 mmHgTR maxP.83 mmHgTR Vmax: 2.28 m/s Pipe Fitter Maintenance: | | DBSAuthenticated by: Marino Fulton Date/Time: [...] |TR Vmax: 2.28 m/s | | | |Pipe Fitter Maintenance: JERE | |Authenticated by: Marino Aguirre | [...]
--- OUTSIDE RECORDS SUMMARY | ~2019-05-21 | XMS | Clinical Summary ---
Demographics + + + | Address | [address] | | | [place] [address] | + + + | Home Phone | | + + + | Preferred Language | Unknown | + + + | Marital Status | | + + + | Restoration Affiliation | Unknown | + + + | Race | Unknown | + + + | Ethnic Group | Unknown | + + + Author + + + | Author | [facility] (Historical as of | | | 01-17-19) | + + + | Organization | [facility] [employer] (Historical as of | | | 01-17-19) | + + + | Address | Unknown | + + + | Phone | Unavailable | + + + Support + + +---------+ + | Name | Relationship | Address | Phone | + + +---------+ + | Jenny Michele | ECON | Unknown | | + + +---------+ + Care Team Providers + +------+ + | Care Fishing Vessel Operator Name | Role | Phone | + +------+ + | Lisseth Butt PA-C | PP | | + +------+ + Allergies + [...] | + + + + + + Current Medications + + +-------+---------+------+------+-------+ | Prescription | Sig. | Disp. | Refills | Star | End | Statu | | | | | | t | Date | s | | | | | | Date | | | + + +-------+---------+------+------+-------+ | | Take 1 tablet by | | | | | Activ | | Vukobqru-Itc-Jl-FA | mouth daily. | | | | | e | | (PRE- PO) | | | | | | | + + +-------+---------+------+------+-------+ Active Problems + + + | Problem [...] | Alive | | + +------+--------+ + Social History + +-------+ +--------+------+ | Tobacco Use | Types | Packs/Day | Years | Date | | | | | Used | | + +-------+ +--------+------+ | Former Smoker | | | | | + +-------+ +--------+------+ + +---+---+---+ | Smokeless Tobacco: | | | | | Never Used | | | | + +---+---+---+ + + +---------+ + | Alcohol Use | Drinks/We | oz/Week | Comments | | | ek | | | + + +---------+ + | Yes | | | rare past use | + + +---------+ + + + + | Sex Assigned at | Date Recorded | | | | + + + | Not on file | | + + + Last Filed Vital Signs + + + + | Vital Sign | Reading | Time Taken | + + + + | Blood Pressure | 116/60 | 07/02/2018 3:59 PM PST | + + + + | Pulse | 79 | 07/02/2018 3:59 PM PST | + + + + | Temperature | - | - | + + + + | Respiratory Rate | - | - | + + + + | Oxygen Saturation | 99% | 07/02/2018 3:59 PM PST | + + + + | Inhaled Oxygen | - | - | | Concentration | | | + + + + | Weight | 81.6 kg (180 lb) | 07/28/2018 12:34 PM PST | + + + + | Height | 160 cm (5' 3") | 07/02/2018 3:59 PM PST | + + + + | Body Mass Index | 31.89 | 07/28/2018 12:34 PM PST | + + + + Plan of Treatment [...] filefrom Last 3 Months Insurance + +--------+ +------+-------+ + | Payer | Benefi | Subscriber | Type | Phone | Address | | | t Plan | ID | | | | | | / | | | | | | | Group | | | | | + +--------+ +------+-------+ + | MEDICAID | [employer] | [id number] | | | [address] | | | [place] | | | | [place] | | | [place] | | | | [address] | | | 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
--- OUTSIDE RECORDS SUMMARY | ~2019-05-21 | XMS | Clinical Summary ---
Demographics + + + | Address | [address] | | | [place] [address] | + + + | Home Phone | | + + + | Preferred Language | Unknown | + + + | Marital Status | Single | + + + | Jewish Affiliation | Unknown | + + + | Race | Unknown | + + + | Ethnic Group | Unknown | + + + Author + + + | Author | [facility] | | | and [place] | + + + | Organization | [facility] | | | and [place] | + + + | Address | Unknown | + + + | Phone | Unavailable | + + + Support + + + + + | Name | Relationship | Address | Phone | + + + + + | Jenny Michele | ECON | [place] | | | | | [address] | | + + + + + Care Team Providers + +------+ + | Care Hydrology Teacher Name | Role | Phone | + [...] | /0 | | Activ | | [id number] | mouth daily. | | | 11/20 [...] | [employer] | [employer] | [id number] | 06/03/19 | [phone] | | Medica | | MEDICAID HMO | HEALTH | | 13-Pre | 1 | | id | | | MDCD | | sent | | | | | | [place] | | | | | | + +--------+ +--------+ +---------+--------+ | [employer] | [employer] | [id number] | 03/25/ | [phone] | | Medica | | MEDICAID HMO [...] Person | Self | [birth year] | | [address] | | | al/Fam | | 1994 | [phone] | [place], [place] | | | [place] | | | [address] (Home) | [address] | + +--------+ +--------+ + + | Antonella Glynn | Person | Self | [birth year] | | [address] | | | al/Fam | | 1994 | [phone] | [place], [place] | | | [place] | | | 6 (Home) | [address] | | | | | [phone] | | | | | | | 0 (Work) | | + +--------+ +--------+ + + Advance Directives + + + + + | Type | Date Recorded | Patient | Explanation | | | | 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
--- OUTSIDE RECORDS SUMMARY | ~2019-05-21 | XMS | Clinical Summary ---
Demographics + + + | Address | [address] | | | [place] [address] | + + + | Home Phone | | + + + | Preferred Language | Unknown | + + + | Marital Status | | + + + | Gnosticism Affiliation | Unknown | + + + | Race | Unknown | + + + | Ethnic Group | Unknown | + + + Author + + + | Author | [facility] [employer] (Historical as of | | | 01-17-19) | + + + | Organization | [facility] [employer] (Historical as of | | | 01-17-19) [...] Team Providers + +------+ + | Care Job Spotter Name | Role | Phone | + [...] | | | | Activ | | Dbjyinfc-Kwv-Fx-FA | mouth daily. 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
[~2019-05-21 10:25] MED LIST changes: +METOPROLOL SUC100 MG PO; +PERCOCET 5-3251 EACH PO
== END 2019-05-21 15:24 | disposition home or self-care (01) ==
LOC: ED 10:25
DX: K92.1 Melena (principal); R10.11 Right upper quadrant pain; J45.909 Unspecified asthma, uncomplicated; Z87.891 Personal history of nicotine dependence
CPT/HCPCS: 76705; 80053; 81001; 83690; 85025; 96361; 99284-25; J1885; J2405; J7030

== ENCOUNTER 2021-04-26 07:52 | Day surgery (SDC) | payer OTHER ==
[~2021-04-26] VITALS: Ht 160 cm; Wt 69.5 kg
[~2021-04-26 07:52] MED LIST changes: +SUBOXONE 8 MG-1 EAC1 SL; +VENTOLIN HFA18 GM INH
--- NOTE | 2021-04-26 11:13 | NUR ---
04/26/21 1113 Medina Varela 1050 PT ARRIVED TO PACU ON 6L VIA MASK, PT ASLEEP AND VSS. 1058 PT WAKES TO TACTILE STIMULI, PT START CRYING AND REPORTS PAIN 01/10. PT REORIENTED TO PACU. 1103 PAIN MEDICATION GIVEN PER EMAR. 1110 PT REPROTS DECREASED PAIN, 10/10. PLAN OF CARE DISCUSSED.
--- NOTE | 2021-04-26 11:54 | NUR ---
[id number]: PT ARRIVES BACK TO DS RM 5 FROM PACU AWAKE AND ALERT. PT STATES "IT IS HARD TO BREATH BECAUSE IT HURTS SO BAD." PT BEGINS TO CRY IN PAIN AND STATES, "MY CHEST FEELS HEAVY." PT MEDICATED WITH IV PAIN MEDS; SEE EMAR. PT SPOUSE AT BEDSIDE ON ARRIVAL. 1150: PT NO LONGER WINCING/CRYING WITH PAIN. EVEN STEADY RESPIRATIONS, PT STATES THAT SHE FEELS "A LITTLE BETTER" AND IS EDUCATED ABOUT PAIN AND WHAT TO EXPECT. PT TAKES SMALL SIPS OF WATER, DENIES ANY NAUSEA. PT HAS ICE TO ABD WITH PILLOW TO BRACE. DC CRITERIA EXPLAINED AND CALL LIGHT WITHIN REACH.
--- NOTE | 2021-04-26 12:35 | NUR ---
1220: PT USES CALL LIGHT TO ALERT DS STAFF OF URGE TO VOID. PT UP TO BATHROOM WITH RN AND SPOUSE ASSIST, STEADY GAIT BUT PAINFUL. PT ABLE TO VOID QS WITH NO PROBLEMS. BACK TO DS RM 5 AND VERY PAINFUL LIFTING LEGS INTO BED, RN ASSIST. PT TEARFUL AND IV PAIN MEDICATION GIVEN; SEE EMAR. CALL LIGHT WITHIN REACH. PT ENCOURAGED TO EAT A FEW BITES OF APPLESAUCE IN ANTICIPATION OF PO PAIN MEDS. PT AGREEABLE.
--- NOTE | 2021-04-26 12:41 | OR ---
[facility] [address], [place] [address] Signed DATE OF OPERATION: 04/26/2021 SURGEON: Jayesh Saez MD PREOPERATIVE DIAGNOSIS: Chronic cholecystitis. POSTOPERATIVE DIAGNOSES: 1. Chronic cholecystitis. 2. Cholesterolosis. PROCEDURE: Laparoscopic cholecystectomy with intraoperative cholangiogram. ESTIMATED BLOOD LOSS: None. FINDINGS: Antonella's intraoperative cholangiogram was unremarkable. She had significant cholesterolosis. She had adhesions of the omentum to the gallbladder. INDICATIONS: Antonella is a 26-year-old female who has had trouble with epigastric abdominal pain and constant nausea over the last few months. The ultrasound was unremarkable. She underwent a HIDA scan and her gallbladder ejection fraction was good at 49%. However injection of the CCK reproduced her symptoms. As a result, she was asked to see me with respect to the above. In the office, I gave her a pamphlet on the gallbladder. We have discussed the location and function of the gallbladder. We have discussed laparoscopic versus open cholecystectomy. She understands expected intraop and postop course. 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 Consequently, she did go back and see her assistant district attorney and she was cleared for surgery with acceptable risk. She will be continuing her cardiac evaluation as the year goes on. She understands there is risk to surgery including, but not limited to bleeding, infection, scarring, change in contour of the skin, damage to bowel, damage to main bile duct, incisional hernias and other unforeseen comorbidities. She had expressed understanding and wished to proceed. PROCEDURE NOTE: I met with Antonella and her in our preop area. After answering their questions, Antonella was taken in the operating room and placed in the supine position under general Electronically Signed By: JAYESH SAEZ MD 04/26/21 1241 PATIENT NAME: ANTONELLA TAFOYA OPERATIVE REPORT DATE OF : [birth year] REPORT #: [id number] PHYSICIAN: JAYESH SAEZ MD PCP: MICHAELA RAMIREZ PA-C REPORT IS CONFIDENTIAL AND NOT TO BE RELEASED WITHOUT AUTHORIZATION [facility] [address], [place] [address] Signed endotracheal tube anesthesia. She was given preoperative antibiotics along with subcutaneous heparin. SCDs were utilized. All trocars were placed in usual positions under direct visualization of camera without difficulty. The gallbladder was grasped and elevated in the right upper quadrant. We took pictures throughout for photodocumentation. We had to take down adhesions of the omentum from the gallbladder. The triangle of Calot was dissected free and the intraoperative cholangiocatheter was inserted into the cystic duct. The intraoperative cholangiogram was performed and found to be unremarkable. The cystic duct stump was secured with a PDS Endoloop along with two clips to natalia its location. The clip had been placed across the cystic artery and it was divided. The gallbladder was then removed from the gallbladder fossa with the help of the cautery and placed into an EndoCatch bag. We used our laparoscopic suturing device to pass 0-Vicryl suture on either side of the fascia of the subxiphoid trocar site. This was tied down to close this fascia primarily. After this, all the gas was allowed to escape and all the trocars were removed along with the gallbladder. The gallbladder was opened on the back table by our circulating nurse for photodocumentation. It demonstrated significant cholesterolosis. We closed the fascia of the supraumbilical trocar site with interrupted simple and [id number] 0-Vicryl sutures. Local anesthetic was injected into all trocar sites. Each trocar site was irrigated and suctioned out until clear. The skin and dermis of each trocar site were closed with interrupted 3-0 subcuticular Monocryl sutures. Dry gauze and tape were applied to all incisions. Antonella was awakened from her anesthesia, extubated in the OR, and taken to the recovery room in stable condition. Jayesh Saez MD [facility] /[id number] cc: ANDREW Emerson MD Copies: MICHAELA RAMIREZ PA-C Electronically Signed By: JAYESH SAEZ MD 04/26/21 1241 PATIENT NAME: ANTONELLA TAFOYA OPERATIVE REPORT DATE OF : [birth year] REPORT #: [id number] PHYSICIAN: JAYESH SAEZ MD PCP: MICHAELA RAMIREZ PA-C REPORT IS CONFIDENTIAL AND NOT TO BE RELEASED WITHOUT AUTHORIZATION [address] [address] Signed JAYESH SAEZ MD ~ Electronically Signed By: JAYESH SAEZ MD 04/26/21 1241 PATIENT NAME: ANTONELLA ATFOYA OPERATIVE REPORT DATE OF : [birth year] REPORT #: [id number] PHYSICIAN: JAYESH SAEZ MD PCP: MICHAELA RAMIREZ PA-C REPORT IS CONFIDENTIAL AND NOT TO BE RELEASED WITHOUT AUTHORIZATION
--- NOTE | 2021-04-26 12:45 | NUR ---
[id number]: PT PREFERRED [facility] CALLED TO SEE IF THEY CAN FILL PAIN PRESCRIPTION. PHARMACIST STATES THEY ARE "ALL OUT OF NORCO 10/325 MG AND 7.5/325 MG AND ONLY HAVE 35 TABS OF 5/[address] [facility] STATES THEY WOULD "NEED A NEW ORDER TO SUPPLEMENT WITH NORCO 5/325 MG BUT THAT THEY ARE FIRST COME, FIRST SERVED." DR. SAEZ CURRENTLY UNABLE TO WRITE NEW SCRIPT HE IS SCRUBBED INTO A CASE. THIS RN ALSO CALLS [facility] WHO DOES NOT ANSWER [facility]. [facility] STATES "WE DO HAVE NORCO 10/325 MG ON HAND, BUT WILL NOT BE ABLE TO FILL FOR A DAY OR TWO DUE TO [facility] CLOSING AND INFLUX OF PATIENTS." THIS RN CALLS [facility] AND SPEAKS TO ALLIE WHO STATES THEY ARE WILLING AND ABLE TO FILL PT PRESCRIPTION WITH THANKSGIVING TOMORROW AND OUTPATIENT PHARMACY DELAYS. ALL INFORMATION RELAYED TO PT AND SPOUSE, WHO ARE RELIEVED TO HAVE MEDS FILLED TODAY.
[2021-04-26] MEDS ORDERED: HYDROCODON-ACE1 EAC8 PO (14:08)
--- NOTE | 2021-04-26 14:12 | NUR ---
[id number]: PHARMACIST ALLIE IN TO PT ROOM WITH FILLED NORCO 10/325 MG PRESCRIPTION, PROVIDED EDUCATION.
--- NOTE | 2021-04-26 14:15 | NUR ---
[id number]: LUIS POOLE CRNA CONTACTED ABOUT PT HAVING "PANIC ATTACK" AND GIVES VERBAL ORDERS TO GIVE PT UP TO 2MG VERSED- "GIVE 1 MG AND WAIT 10 MINUTES BEFORE GIVING SECOND DOSE OF 1 MG." PHARMACY NOTIFIED OF NEW ORDERS INPUT INTO [employer].
--- NOTE | 2021-04-26 16:30 | NUR ---
[id number]: PT CONFIRMS THAT VERSED HELPED STATES, "I DON'T FEEL BAD NOW." SPOUSE CONT AT SIDE OF BED. [id number]: IN TO PT ROOM TO ASSESS AND PT STATES, "I JUST FEEL SO UNCOMFORTABLE, NOTHING I DO SEEMS TO HELP... I JUST WANT TO GO HOME." PT OFFERED SECOND DOSE OF VERSED AND DECLINES. PT WOULD LIKE TO GO HOME STRETCHER IS NOT COMFORTABLE. PT DRESSES SELF WITH SPOUSE IN ROOM, ENCOURAGED TO OPEN CURTAIN WHEN FINISHED. [id number]: DC INSTRUCTIONS PRESENTED BOTH VERBALLY AND WRITTEN TO PT AND SPOUSE. PT DC FROM DS RM 5 VIA WC TO SPOUSE IN PERSONAL VEHICLE WAITING AT MAIN HOSPTIAL ENTRACE TO HOME.
== END 2021-04-26 14:35 | disposition home or self-care (01) ==
LOC: DS 07:52
PROVIDERS: ATTEND Colon & Rectal Surgery
PROC: BF13YZZ Fluoroscopy of Gallbladder and Bile Ducts using Other Contrast (ICD-10-PCS; 2021-04-26)
PROC: 0FT44ZZ Resection of Gallbladder, Percutaneous Endoscopic Approach (ICD-10-PCS; principal; 2021-04-26 08:00)
DX: K81.1 Chronic cholecystitis (principal); J45.909 Unspecified asthma, uncomplicated; K21.9 Gastro-esophageal reflux disease without esophagitis; Z87.891 Personal history of nicotine dependence
CPT/HCPCS: 00790; 74300; J0330; J0690; J1100; J1170; J1644; J1885; J2001; J2250; J2300; J2405; J2704; J3010; J7121; Q9967

== ENCOUNTER 2021-05-05 08:49 | Emergency (ER) | payer OTHER ==
[~2021-05-05] VITALS: Ht 160 cm; Wt 70.8 kg
[~2021-05-05 08:49] MED LIST changes: +HYDROCODON-ACE1 EAC8 PO
--- OUTSIDE RECORDS SUMMARY | 2021-05-05 08:56 | XMS ---
PreManage Notification: JANET TAFOYA Security Patrol Man Events No recent Security Events currently on file CRITERIA MET - [place] [facility] - 2 Visits in 30 Days CARE PROVIDERS There are no care providers on record at this time. Milagros has no Care Guidelines for this patient. [facility] MO[facility] NOTE: Visits indicate total known visits. ED/[facility] VISIT TRACKING (12 MO.) [facility] COMPLAINT: - POST OP PROBLEM 05/04/2021 19:06 [facility] [place] TYPE: Emergency COMPLAINT: - POST OP PROBLEM, LWOB INPATIENT VISIT TRACKING (12 MO.) No inpatient visits to display in this time frame [email or web address]
== END 2021-05-05 10:42 | disposition home or self-care (01) ==
LOC: ED 08:49
DX: K91.89 Other postprocedural complications and disorders of digestive system (principal); J45.909 Unspecified asthma, uncomplicated; Z87.891 Personal history of nicotine dependence; Z88.6 Allergy status to analgesic agent; Z91.012 Allergy to eggs; Z79.899 Other long term (current) drug therapy
CPT/HCPCS: 85025; 99283

== ENCOUNTER 2022-10-27 11:03 | Emergency (ER) | payer OTHER ==
[~2022-10-27] VITALS: Ht 160 cm; Wt 86.8 kg
[~2022-10-27 11:03] MED LIST changes: +MOTRIN IB200 MG PO
--- OUTSIDE RECORDS SUMMARY | 2022-10-27 11:06 | XMS ---
PreManage Notification: JANET TAFOYA Security Personnel Officer Events 1 event(s) in the past 18 months Most recent security events: Elopement at [facility] 05/04/2021 19:06 - Other Details: PATIENT LWBS CRITERIA MET - [facility] CARE PROVIDERS -, Amanda- Dentist: Service Order Dispatcher [facility] PHONE: [phone] MICHAELA RAMIREZ Physician Windows Laptop Technician 05/08/2021-Current PHONE: [phone] Milagros has no Care Guidelines for this patient. Yamini VISIT COUNT (12 MO.) [address] [place] [address] TOTAL 2 NOTE: Visits indicate total known visits. ED/UCC VISIT TRACKING (12 MO.) 10/27/2022 11:04 [facility] [place] TYPE: Emergency COMPLAINT: - BLOODY STOOL, ABD PAIN 12/05/2021 14:55 [facility] TYPE: Emergency COMPLAINT: - R LOWER ABD PAIN, DIZZY, SHAKY INPATIENT VISIT TRACKING (12 MO.) 12/05/2021 14:56 [facility] [place] TYPE: Observation COMPLAINT: - ECTOPIC DIAGNOSES: - Allergy status to analgesic agent - Allergy to eggs - Contact with and (suspected) exposure to COVID-19 - Endometriosis, unspecified - Personal history of nicotine dependence - Right tubal without intrauterine - Unspecified asthma, uncomplicated - Unspecified ectopic without intrauterine - Ventricular premature depolarization [email or web address]
[2022-10-27] MEDS ORDERED: TRAZODONE HCL50 MG PO (11:52)
[2022-10-27] MEDS ORDERED: BUPRENORPHINE-1 EACH SL (11:52)
[2022-10-27] MEDS ORDERED: ANUSOL-HC25 MG PR (12:37)
[2022-10-27 14:20] VITALS: BP 117/81
== END 2022-10-27 14:21 | disposition home or self-care (01) ==
LOC: ED 11:03
DX: K62.5 Hemorrhage of anus and rectum (principal); J45.909 Unspecified asthma, uncomplicated; Z87.891 Personal history of nicotine dependence; Z88.8 Allergy status to other drugs, medicaments and biological substances; Z91.012 Allergy to eggs; Z79.899 Other long term (current) drug therapy
CPT/HCPCS: 36415; 80053; 85025; 99284

== ENCOUNTER 2023-10-05 23:48 | Emergency (ER) | payer OTHER ==
[~2023-10-05] VITALS: Ht 160 cm; Wt 92.0 kg
[~2023-10-05 23:48] MED LIST changes: +ANUSOL-HC25 MG PR; +BUPRENORPHINE-1 EACH SL; +TRAZODONE HCL50 MG PO
--- OUTSIDE RECORDS SUMMARY | 2023-10-05 23:51 | XMS ---
PreManage Notification: JANET TAFOYA Security Brim And Crown Presser Events No recent Security Events currently on file CRITERIA MET - PD[facility] CARE PROVIDERS -Amanda- Dentist: Planishing Press Operator [facility] PHONE: [phone] Milagros has no Care Guidelines for this patient. EJose J VISIT COUNT (12 MO.) 2 [facility] TOTAL 2 NOTE: Visits indicate total known visits. ED/UCC VISIT TRACKING (12 MO.) 10/05/2023 23:50 [facility] [place] TYPE: Emergency COMPLAINT: - LEG AND ANKLE INJURY 10/27/2022 11:04 [facility] [place] TYPE: Emergency COMPLAINT: - BLOODY STOOL, ABD PAIN DIAGNOSES: - Allergy status to other drugs, medicaments and biological substances - Allergy to eggs - Hemorrhage of anus and rectum - Other intermodal customer service (current) drug therapy - Personal history of nicotine dependence - Unspecified asthma, uncomplicated INPATIENT VISIT TRACKING (12 MO.) No inpatient visits to display in this time frame [email or web address]
[2023-10-06] MEDS ORDERED: KETOROLAC TROMETHAMINE 60 MG/2 ML VIAL IM ONE ×2 (00:15→00:30)
[2023-10-06 00:48] VITALS: BP 118/70
== END 2023-10-06 00:48 | disposition home or self-care (01) ==
LOC: ED 23:48
DX: S93.401A Sprain of unspecified ligament of right ankle, initial encounter (principal); X50.1XXA Overexertion from prolonged static or awkward postures, initial encounter; Z87.891 Personal history of nicotine dependence; Z88.6 Allergy status to analgesic agent; Z91.012 Allergy to eggs; Z79.899 Other long term (current) drug therapy
CPT/HCPCS: 73590; 73610; 96372; 99283-25; J1885